=== PATIENT | male | born 1995 ===

== ENCOUNTER 2022-09-08 12:03 | Emergency (ER) | payer SELFPAY ==
[~2022-09-08] VITALS: Ht 426.7 cm; Wt 76.0 kg
[2022-09-08 12:18] VITALS: TEMP 97.6
[2022-09-08 14:21] LABS: COLLECTION METHOD CLEAN CATCH
[2022-09-08 14:26] LABS: BASO # 0.1 K/mm3 (0.0-0.2); BASO % 0.8 % (0.0-2.0); EOS # 0.4 K/mm3 (0.0-0.7); EOS % 5.5 % (0.0-4.0); GRAN # 4.3 K/mm3 (1.4-6.5); GRAN % 57.4 % (42.2-75.2); HEMATOCRIT 47.4 % (42.0-52.0); HEMOGLOBIN 16.7 g/dl (13.5-18.0); LYMPH # 2.1 K/mm3 (1.2-3.4); LYMPH % 27.8 % (20.0-51.0); MEAN CELL VOLUME 89 fl (80.0-100.0); MEAN CORPUSCULAR HEMOGLOBIN 31 pg (27-31); MEAN CORPUSCULAR HGB CONC 35 g/dl (33.0-37.0); MEAN PLATELET VOLUME 9.8 fl (7.4-10.4); MONO # 0.6 K/mm3 (0.1-0.6); MONO % 7.8 % (1.7-9.3); PLATELET COUNT 266 K/mm3 (130-400); RED BLOOD COUNT 5.33 M/mm3 (4.20-5.60)
[2022-09-08 14:35] LABS: PH 6.5 (5-8); SQUAMOUS EPITHELIAL None Seen /hpf (0-10); URINE APPEARANCE Clear (CLEAR/HAZY); URINE BACTERIA None Seen /hpf (NONE SEEN); URINE BLOOD Negative (NEGATIVE); URINE COLOR Yellow (YELLOW); URINE GLUCOSE Negative (NEGATIVE); URINE KETONE Negative (NEGATIVE); URINE NITRATE Negative (NEGATIVE); URINE PROTEIN(semi-quant) Negative (NEGATIVE); URINE RBC 0-2 /hpf (0-2); URINE UROBILINOGEN 0.2 (NEGATIVE)
[2022-09-08 14:44] LABS: ALBUMIN 4.8 gm/dL (3.5-5.0); BILIRUBIN,TOTAL 0.6 mg/dL (0.2-1.2); C-REACTIVE PROTEIN 0.12 mg/dL (0.00-0.50); CALCIUM 9.9 mg/dL (8.4-10.2); CREATININE, serum 0.73 mg/dL (0.72-1.25); TOTAL PROTEIN 8.7 gm/dL (6.2-8.1)
[2022-09-08] MEDS ORDERED: NORCO 325 MG-51 TAB PO (17:03)
[2022-09-08 17:10] VITALS: BP 129/91; PULSE 76
== END 2022-09-08 17:10 | disposition home or self-care (01) ==
LOC: COL.ER 12:03
PROVIDERS: Nurse Practitioner
DX: M79.3 Panniculitis, unspecified (principal); F17.290 Nicotine dependence, other tobacco product, uncomplicated
CPT/HCPCS: J1885; J2405; J7030; Q9967